=== PATIENT | female | born 1995 | race Caucasian/White ===

== ENCOUNTER 2019-06-22 13:21 | Emergency (ER) | payer BC ==
[~2019-06-22] VITALS: Ht 175.3 cm; Wt 110.4 kg
[~2019-06-22 13:21] MED LIST: BACLOFEN10 MG PO; BIRTH CONTROL PO; ZOFRAN PO
--- OUTSIDE RECORDS SUMMARY | 2019-06-22 13:24 | XMS REPORT ---
Author Author [facility] Address Unknown Phone Unavailable Care Team Providers Care Soil Sampler Name Role Phone Unavailable Unavailable Problems This patient has no known problems. Allergies, Adverse Reactions, Alerts This patient has no known allergies or adverse reactions. Medications This patient has no known medications. Results Test Description Test Time Test Comments Text Results Atomic Results Result Comments CT, BRAIN, WITHOUT CONTRAST 2018-12-16 23:14:00 FINAL REPORT EXAMINATION NONCONTRAST HEAD CT SCAN CLINICAL HISTORY:Headache COMPARISON CT: None EPISODE OF CARE: Initial TECHNIQUE: Axial tomographic images were obtained through the brain from the vertex to the skull base without intravenous contrast. The exam was performed according to our departmental dose optimization program which includes automated exposure control, adjustment of the mA and/or kV according to patient's size and/or use of iterative reconstructive technique. FINDINGS: No evidence of acute intracranial hemorrhage, mass effect, midline shift, hydrocephalus or abnormal extra-axial fluid collection. Although there are no definite findings to suggest evolving ischemia, CT is not sensitive for the detection of early or small infarcts. Visualized paranasal sinuses, tympanic cavities and mastoid air cells are well pneumatized. Mandibular condyles project anatomically. No definite evidence of an acute orbital process or skull fracture. IMPRESSION: No definite evidence of an acute intracranial process. If there is persistent clinical concern, consider MRI. Signed: Rickie Gutierrez MDReport Verified Date/Time: 12/16/2018 23:14:57 Reading Location: [address] Reading Room
--- OUTSIDE RECORDS SUMMARY | 2019-06-22 13:24 | XMS REPORT | Summary of Care ---
Author Author KAREN León, HEMA Cantu Unknown Address [facility] Phone Unavailable Care Team Providers Care Finger Waver Name Role Phone HEMA JONES M.D. 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: Active Encounter for routine gynecological examination with Papanicolaou smear of cervix (V72.31, Z01.419) Status: Active Encounter for gynecological examination without abnormal finding (V72.31, Z01.419) Status: Active control counseling (V25.09, Z30.09) Status: Active Venereal disease screening (V74.5, Z11.3) Status: Active Bacterial vaginosis (616.10, N76.0) Status: Active Seizure disorder (345.90, G40.909) Status: Active Mildly obese (278.00, E66.9) Status: Active Influenza vaccination declined (V64.06, Z28.21) Status: Active Primary dysmenorrhea (625.3, N94.4) Status: Active Follow up (V67.9, Z09) Status: Active Ovarian cyst (620.2, N83.209) Status: Active Right flank pain (789.09, R10.9) Status: Active Need for influenza vaccination (V04.81, Z23) Status: Active Chronic right-sided back pain, unspecified back location (724.5, M54.9) Status: Active Chronic constipation (564.00, K59.09) Status: Active Anxiety disorder (300.00, F41.9) Status: Active Medications Name Dates Details Loestrin Fe 08/05 1-20 MG-MCG Oral Tablet TAKE 1 TABLET DAILY DIRECTED. Quantity: 3 ORA KEANE M.D. * Start : 12-Feb-2016 Active 28 Tablet Pack Metaxalone 800 MG Oral Tablet TAKE 1 TABLET 3 TIMES DAILY NEEDED FOR MUSCLE SPASM. * Quantity: 90 Refills: 5 HEMA JONES M.D. * Start : 21-Apr-2017 Active Colace 100 MG Oral Capsule TAKE 1 CAPSULE 3 TIMES DAILY. * Quantity: 90 Refills: 1 HEMA JONES M.D. * Start : 23-Jun-2017 Active Polyethylene Glycol 3350 Oral Packet MIX 1 PACKET IN 8 OUNCES OF LIQUID AND DRINK ONCE DAILY. * Quantity: 30 Refills: 0 HEMA JONES M.D. * Start : 23-Jun-2017 Active Allergies and Adverse Reactions Name Dates Details No Known Drug Allergies (Allergy) Status: Active Past Medical History Name Dates Details History of Back pain, unspecified back pain laterality, unspecified location Status: Resolved History of Intractable migraine, unspecified migraine type (346.91, G43.919) Status: Resolved History of Neck pain (723.1, M54.2) Status: Resolved Procedures Procedure Dates Details History of Foot Repair Completed History of gallbladder surgery Completed Immunization Name Dates Details Fluzone Quadrivalent 0.5 ML Intramuscular Suspension Lot #: [id number] on: 21-Apr-2017 Family History Name Dates Details Family history of essential hypertension (V17.49, Z82.49) Status: Active Name Dates Details Family history of Type 2 diabetes mellitus without complication (250.00, E11.9) Status: Active Name Dates Details Family history of autism (V17.0, Z81.8) Status: Active Family history of Attention deficit hyperactivity disorder (ADHD), unspecified ADHD type (314.01, F90.9) Status: Active Social History Name Dates Details - Status: Name Dates Details Never smoker Vital Signs Date Test Result Details [id number] BP Systolic 124 mm[Hg] Status: Comments: Location: LUE; Position: Sitting BP Diastolic 88 mm[Hg] Status: Comments: Location: LUE; Position: Sitting Height 68 in Status: Weight 231.25 lb Status: Body Mass Index Calculated 35.16 kg/m2 Status: Body Surface Area Calculated 2.17 m2 Status: Temperature 98.1 f Status: Comments: Method: Temporal Heart Rate 92 /min Status: Respiration Rate 14 /min Status: Physical Findings 6 Status: Comments: Pain Scale Results Date Description Value Details Results not documented Plan of Care Name Dates Details Planned Observations Planned Goals not documented Interventions Provided Medication Changes* Colace 100 MG Oral Capsule - Start * Polyethylene Glycol 3350 Oral Packet - Start Plan* Recommended Colace 100 mg TID. * MiraLAX one pack per day. * 8 glasses of water per day. * 30 minutes of walking 2x/day. * Keep a symptoms diary of straining and of back pain. * Schedule a visit to follow up in 3 months. 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 Instructions Name Dates Details Instructions not documented Encounters Appointment; LEX CEVALLOS M.D. Encounter Diagnosis: Problem not documented On: 28-Jul-2015 13:00 Appointment; LEX CEVALLOS M.D. Encounter Diagnosis: Problem not documented On: 08-Sep-2015 14:00 Appointment; SHEEBA CHEN M.D. Encounter Diagnosis: Problem not documented On: 12-Feb-2016 11:00 Appointment; HONEY JOYA M.D. Encounter Diagnosis: Problem not documented On: 26-Jul-2016 10:30 Appointment; HONEY JOYA M.D. Encounter Diagnosis: Problem not documented On: 05-Sep-2016 10:00 Appointment; HEMA JONES M.D. Encounter Diagnosis: Problem not documented On: 31-Oct-2016 11:00 Appointment; ORA KEANE M.D. Encounter Diagnosis: Problem not documented On: 30-Nov-2016 10:30 Appointment; HEMA JONES M.D. Encounter Diagnosis: Problem not documented On: 21-Apr-2017 16:00 Appointment; HEMA JONES M.D. Encounter Diagnosis: Problem not documented On: 23-Jun-2017 14:30
[2019-06-22 14:13] VITALS: BP 136/93
== END 2019-06-22 14:24 | disposition home or self-care (01) ==
LOC: FSED 13:21
DX: R05 Cough (principal); J02.9 Acute pharyngitis, unspecified
CPT/HCPCS: 83518; 87400; 99283

== ENCOUNTER → 2020-07-02 | Outpatient (CLI) | payer OTHER ==
[~2020-07-02] MED LIST changes: +GADOBENATE DIMEGLUMINE 1 ML IV ONE
== END ==
LOC: MRI 08:27
PROVIDERS: ATTEND Psychiatry & Neurology Neurology
DX: G43.019 Migraine without aura, intractable, without status migrainosus (principal); R29.818 Other symptoms and signs involving the nervous system
CPT/HCPCS: 70553; A9577

== ENCOUNTER → 2021-10-29 | Outpatient (CLI) | payer BC ==
[~2021-10-29] MED LIST changes: -GADOBENATE DIMEGLUMINE 1 ML IV ONE
[2021-10-29 10:48] LABS: BASOPHILS % 0.5 % (0.0-1.0); EOSINOPHILS # (AUTO) 0.2 (0.0-0.4); EOSINOPHILS % 2.4 % (0.0-6.0); HEMATOCRIT 41.6 % (34.2-44.1); HEMOGLOBIN 13.2 g/dL (12.0-16.0); LYMPHOCYTES # (AUTO) 2.9 (1.0-3.2); LYMPHOCYTES % 34.1 % (18.0-39.1); MEAN CORPUSCULAR HEMOGLOBIN 26.5 pg (28-32); MEAN CORPUSCULAR HGB CONC 31.7 g/dL (31-35); MEAN CORPUSCULAR VOLUME 83.5 fL (81-99); MONOCYTES # (AUTO) 0.8 (0.2-0.8); MONOCYTES % 9.6 % (4.4-11.3); NEUTROPHILS # (AUTO) 4.5 (2.1-6.9); PLATELET COUNT 335 x10e3/uL (140-360); RED BLOOD COUNT 4.98 x10e6/uL (3.6-5.1); RED CELL DISTRIBUTION WIDTH 12.4 % (11.7-14.4)
[2021-10-29 11:23] LABS: ALBUMIN 3.5 g/dL (3.5-5.0); ALBUMIN/GLOBULIN RATIO 0.8 (0.8-2.0); ANION GAP 12.1 mmol/L (8-16); CALCIUM 9.3 mg/dL (8.4-10.2); CHOL/HDL RATIO 4.6 (3.0-3.6); CREATININE, SERUM 0.8 mg/dL (0.57-1.11); POTASSIUM 4.1 mmol/L (3.5-5.1)
== END ==
LOC: LAB 10:36
PROVIDERS: ATTEND Surgery
DX: I10 Essential (primary) hypertension (principal)
CPT/HCPCS: 36415; 80053; 80061; 82607; 83036; 83540; 84466; 85025

== ENCOUNTER 2021-11-22 07:33 | Inpatient (IN) | payer BC, OTHER ==
[~2021-11-22] VITALS: Ht 175.3 cm; Wt 110.2 kg
[~2021-11-22 07:33] MED LIST changes: +MELATONIN3 MG PO; +ZYRTEC10 M3 PO
[2021-11-22] MEDS ORDERED: BUPIVACAINE 0.25% 30ML SDV ONE (10:03)
[2021-11-22] MEDS ORDERED: ACETAMINOPHEN 1000 MG/100 ML 100 ML IV ONE (11:53)
[2021-11-22] MEDS ORDERED: ROCURONIUM BROMIDE 10 MG/ML 5ML VIAL IV ONE (11:57)
[2021-11-22] MEDS ORDERED: ONDANSETRON HCL INJ 2MG/ML 2ML 2 MG/ML VIAL ONE ×2 (11:57→12:25)
[2021-11-22] MEDS ORDERED: PROPOFOL IV EMULSION 10 MG/ML 20 ML VIAL ONE (11:57)
[2021-11-22] MEDS ORDERED: GLYCOPYRROLATE INJ 0.2 MG/ML VIAL ONE (11:57)
[2021-11-22] MEDS ORDERED: NEOSTIGMINE 1 MG/ML 10ML VIAL ONE (11:57)
[2021-11-22] MEDS ORDERED: DEXAMETHASONE SOD PHOS INJ 4 MG/ML SDV ONE (11:57)
[2021-11-22] MEDS ORDERED: LIDOCAINE HCL 2% LOCAL INJ 5 ML SDV VIAL INJ ONE (11:57)
[2021-11-22] MEDS ORDERED: SEVOFLURANE INHAL SOLN 250 ML PEN BTL ONE (11:57)
[2021-11-22] MEDS ORDERED: POVIDONE IODINE 0.05% 0.05 % ML PO ONE (11:57)
[2021-11-22] MEDS ORDERED: FENTANYL CITRATE/PF 100MCG/2 ML INJ ONE (12:16)
[2021-11-22] MEDS ORDERED: MIDAZOLAM HCL 2 MG/2 ML VIAL ONE (12:16)
[2021-11-22] MEDS ORDERED: METOCLOPRAMIDE HCL 10 MG/2ML VIAL ONE (12:25)
[2021-11-22] MEDS ORDERED: PROMETHAZINE HCL (IM) 25 MG/ML VIAL IM ONE (12:32)
[2021-11-22 14:40] VITALS: BP 133/87
[2021-11-22 14:41] VITALS: BP 133/87
[2021-11-22 14:43] VITALS: BP 133/87
[2021-11-22] MEDS ORDERED: SCOPOLAMINE 1.3 MG PATCH TOP ONE (14:45)
[2021-11-22] MEDS: LACTATED RINGER'S 1,000 ML INJ SCH ×2 (15:24→23:14)
[2021-11-22] MEDS: Morphine 2mg Syringe 2 MG/ML SYR IV PRN ×2 (16:33→23:16)
[2021-11-22] MEDS: ONDANSETRON HCL INJ 2MG/ML 2ML 2 MG/ML VIAL IV PRN ×2 (16:33→23:16)
[2021-11-22 17:59] VITALS: BP 133/87
[2021-11-22] MEDS: ENOXAPARIN SOD INJ 40 MG/0.4 ML SYR SC SCH (20:12)
[2021-11-22 21:21] VITALS: BP 145/92
[2021-11-22 21:52] VITALS: BP 145/92
[2021-11-23 00:14] VITALS: BP 134/94
[2021-11-23] MEDS: Morphine 2mg Syringe 2 MG/ML SYR IV PRN (03:26)
[2021-11-23 05:27] VITALS: BP 142/92
[2021-11-23] MEDS: LACTATED RINGER'S 1,000 ML INJ SCH (05:50)
[2021-11-23 06:13] LABS: BASOPHILS % 0.1 % (0.0-1.0); HEMATOCRIT 37.2 % (34.2-44.1); HEMOGLOBIN 11.9 g/dL (12.0-16.0); LYMPHOCYTES # (AUTO) 2.2 (1.0-3.2); LYMPHOCYTES % 12.9 % (18.0-39.1); MEAN CORPUSCULAR HEMOGLOBIN 26.4 pg (28-32); MEAN CORPUSCULAR VOLUME 82.5 fL (81-99); MONOCYTES # (AUTO) 1.4 (0.2-0.8); MONOCYTES % 7.9 % (4.4-11.3); NEUTROPHILS # (AUTO) 13.6 (2.1-6.9); NEUTROPHILS % 78.8 % (38.7-80.0); PLATELET COUNT 325 x10e3/uL (140-360); RED BLOOD COUNT 4.51 x10e6/uL (3.6-5.1); RED CELL DISTRIBUTION WIDTH 12.2 % (11.7-14.4)
[2021-11-23 06:48] LABS: ALBUMIN 3.4 g/dL (3.5-5.0); ALBUMIN/GLOBULIN RATIO 0.9 (0.8-2.0); CALCIUM 8.8 mg/dL (8.4-10.2); CREATININE, SERUM 0.81 mg/dL (0.57-1.11)
[2021-11-23 08:06] VITALS: BP 128/89
[2021-11-23] MEDS: ENOXAPARIN SOD INJ 40 MG/0.4 ML SYR SC SCH (08:24)
[2021-11-23] MEDS ORDERED: HYDROCODONE/APAP 7.5MG-325MG 1 EA TAB PO PRN (09:00)
== END 2021-11-23 10:34 | disposition home or self-care (01) | DRG 621 ==
LOC: OR 07:33 → PACU V 13:37 → MED/SURG2 13:56
PROVIDERS: ADMIT Internal Medicine; ATTEND Internal Medicine
PROC: 0DB64Z3 Excision of Stomach, Percutaneous Endoscopic Approach, Vertical (ICD-10-PCS; principal; 2021-11-22 10:43)
DX: E66.01 Morbid (severe) obesity due to excess calories (principal); Z68.35 Body mass index [BMI] 35.0-35.9, adult; I10 Essential (primary) hypertension; Z82.49 Family history of ischemic heart disease and other diseases of the circulatory system; Z83.3 Family history of diabetes mellitus; Z82.3 Family history of stroke; Z90.49 Acquired absence of other specified parts of digestive tract; Z20.822 Contact with and (suspected) exposure to COVID-19
CPT/HCPCS: 36415; 80053; 81025; 83735; 84100; 85025; 94799; C1713; J0690; J1100; J1650; J2001; J2250; J2270; J2405; J2550; J2710; J2765; J3010; J7121; U0002

== ENCOUNTER → 2022-12-21 | Outpatient (CLI) | payer OTHER | LOC: RAD 12:53 | PROVIDERS: ATTEND Family Medicine | DX: M25.561 Pain in right knee (principal); M25.562 Pain in left knee ==